=== PATIENT | male | born 1975 | race Two or more races ===

== ENCOUNTER 2021-10-26 22:49 | Emergency (ER) | payer MEDICAID ==
[2021-10-26 23:37] VITALS: BP 152/96
== END 2021-10-27 06:30 | disposition left against medical advice (07) ==
LOC: ER 22:49
DX: U07.1 COVID-19 (principal); R51.9 Headache, unspecified; R11.0 Nausea; Z53.21 Procedure and treatment not carried out due to patient leaving prior to being seen by health care provider
CPT/HCPCS: 36415